=== PATIENT | female | born 1930 | race Caucasian/White ===

== ENCOUNTER → 2017-10-02 | Outpatient (CLI) | payer OTHER ==
[~2017-10-02] MED LIST: ADULT LOW DOSE81 MG PO; ALLEGRA60 MG PO; ASPIRIN325 PO; CIPROFLOXACIN500 M3 PO; DIOVAN HCT 80-1 EACH PO; FISH OIL 1,0001 EAC5 PO; GLUCOPHAGE XR500 MG PO; IRON325 PO; LOPRESSOR 50 MG50 M1 PO; OMEPRAZOLE20 M2 PO; OS-CAL 500+D C1 EACH PO; PLAVIX 75 MG TA75 MG PO; SIMCOR 500-201 EACH PO; THERAGRAN-M AD1 EACH PO; VITAMIN D1000 UNI1 PO; VITCB500GO; ZOFRAN ODT4 MG PO
== END ==
LOC: RAD 10:32
DX: M47.896 Other spondylosis, lumbar region (principal); M16.0 Bilateral primary osteoarthritis of hip; G89.29 Other chronic pain

== ENCOUNTER → 2018-10-05 | Outpatient (CLI) | payer OTHER | LOC: RAD 12:20 | DX: M79.671 Pain in right foot (principal) ==

== ENCOUNTER → 2018-11-20 | Outpatient (CLI) | payer OTHER ==
[~2018-11-20] VITALS: Ht 157.5 cm; Wt 72.6 kg
[~2018-11-20] MED LIST changes: +CRESTOR40 MG PO; +FOLGARD TABLET1 EAC1 PO; +GLUCOSAMINE HC500 MG PO; +LISINOPRIL-HCT1 EAC2 PO
[2018-11-20 07:07] VITALS: BP 131/58
--- NOTE | 2018-11-23 16:59 | CATHLAB ---
[facility] [place] [address] INVASIVE PROCEDURE REPORT Name: ZENONJARRETTSARATHLiza De Jesus Room #: REG Dorian#: [id number] Admission: 11/20/18 Attend Phys: Reece Santoro, Discharge: Date of : 34 Date of Service: 11/23/18 1659 Report #: [id number] THIS REPORT FOR: //name// APPROVED REPORT Study performed: 11/20/2018 08:11:39 Patient Details The patient is a 88 year-old female Event Personnel Reece Santoro Casserole Preparer, Siva Butler RN RN, Dario Ellison RTR Rey, Sophia Mejia Monitor Procedures Performed Left Heart Cath Coronaries, Bypass Grafts [id number] LHCCORCABG , Aortogram, Bilateral Renals Indication Chest pain Procedure Narrative The Right Groin^ was infiltrated with 1% Lidocaine subcutaneous anesthesia. A PINNACLE 6FR Sheath #[id number] sheath was inserted into the RFA^. Coronary angiography was performed using coronary diagnostic catheters. The right coronary system was accessed and visualized with a JR4 catheter. The left coronary system was accessed and visualized with a JL4 catheter. The left ventricle was accessed and visualized with a PIGTAIL catheter. An aortogram of the abdominal aorta was performed. Closure device was deployed with a Fr MYNXGRIP 6/7F #[id number]. The patient tolerated the procedure well and there were no complications associated with the procedure. There was no hematoma. Intraoperative Conscious Sedation Sedation start time: 840 Case end Time: 858 Fentanyl 50 mcg Versed 1 mg Fluoro Time: 3.57 minutes Dose: DAP 5723.00 cGycm2 682 mGy Contrast Type and Amount: Omnipaque 125 ml Hemodynamics The aortic pressure is 130/58 mmHg with a mean of 78 mmHg. The left [facility] [address] [place] [address] INVASIVE PROCEDURE REPORT Name: ABAD MCCORMACK [id number] Admission: 11/20/18 Attend Phys: Reece Santoro, Discharge: Date of : 34 Date of Service: 11/23/18 1659 Report #: [id number] ventricular end diastolic pressure is 26 mmHg. Conclusion #1 normal left ventricular size and systolic function EF 60% #2 abdominal aortogram revealing mild aortic plaquing moderate stenosis of ostial renal arteries no aneurysm. #3 left main mildly calcified mildly disease giving rise to LAD and circumflex #4 LAD is mildly disease it extends around the apex. Moderate calcification is noted. No high-grade occlusive disease #5 the BRANDT is an atraumatic vessel essentially nonfunctioning due to the brisk nature of the [place] LAD flow. 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 Recommendations and plan continue aggressive risk factor modification. We'll follow-up 6 months with a renal Doppler. Follow post angiography protocol. <ELECTRONICALLY SIGNED> By: Reece Santoro MD, FACC 11/23/181658 58 58 Reece Santoro MD, FACC /INF
== END | disposition home or self-care (01) ==
LOC: CATH 06:27
DX: I25.10 Atherosclerotic heart disease of native coronary artery without angina pectoris (principal); I70.1 Atherosclerosis of renal artery; I70.0 Atherosclerosis of aorta; I10 Essential (primary) hypertension; E78.5 Hyperlipidemia, unspecified; E11.9 Type 2 diabetes mellitus without complications; M19.90 Unspecified osteoarthritis, unspecified site; K21.9 Gastro-esophageal reflux disease without esophagitis; Z95.1 Presence of aortocoronary bypass graft; Z88.2 Allergy status to sulfonamides; Z79.82 Long term (current) use of aspirin; Z79.899 Other long term (current) drug therapy; Z98.890 Other specified postprocedural states

== ENCOUNTER 2019-06-09 21:39 | Observation (INO) | payer OTHER ==
[~2019-06-09] VITALS: Ht 160 cm; Wt 71.7 kg
[2019-06-09 21:41] VITALS: BP 170/73
[2019-06-09] MEDS ORDERED: LOSARTAN POTASS50 MG PO (21:53)
[2019-06-09] MEDS ORDERED: CHILDREN'S ZYRT10 M1 PO (21:54)
[2019-06-09] MEDS ORDERED: TOPROL XL50 MG PO (21:54)
[2019-06-09] MEDS ORDERED: PROBIOTIC1 EAC7 PO (21:55)
[2019-06-09] MEDS ORDERED: ADVAIR 250-501 EACH INH (21:56)
[2019-06-09] MEDS ORDERED: VENTOLIN HFA INH8 GM INH (21:56)
[2019-06-09] MEDS ORDERED: NITROSTAT0.4 M1 SUBLING (21:58)
[2019-06-09 22:05] LABS: HEMATOCRIT 34.2 % (37.0-47.0); HEMOGLOBIN 11.2 gm/dL (12.0-15.0); MCH 30.7 pg (26.0-34.0); MCHC 32.9 g/dL (28.0-37.0); MCV 93.2 fL (80.0-100.0); PLATELET COUNT 279 thou/uL (150-400); RBC 3.67 mil/uL (4.20-5.00); RDW 14.9 % (10.5-14.5); WBC 6.9 thou/uL (4.0-11.0)
[2019-06-09 22:15] LABS: ANION GAP 9 mmol/L (7-16); BUN 15 mg/dL (7-18); CALCIUM 8.9 mg/dL (8.5-10.1); CHLORIDE 101 mmol/L (98-107); CO2 27 mmol/L (21-32); CREATININE 0.6 mg/dL (0.6-1.0); GLUCOSE 114 mg/dL (74-106); POTASSIUM 3.6 mmol/L (3.5-5.1); SODIUM 137 mmol/L (136-145)
[2019-06-09 22:25] LABS: ALBUMIN 3.6 g/dL (3.4-5.0); SGOT 19 U/L (15-37); SGPT 20 U/L (30-65); TOTAL BILIRUBIN 0.9 mg/dL (<0.1-1.0); TOTAL PROTEIN 7.1 g/dL (6.4-8.2); TROPONIN-I <0.06 ng/mL (<0.06)
[2019-06-09 22:40] LABS: ABSOLUTE NEUTROPHILS 4.1 thou/uL (1.4-8.2); ANISOCYTOSIS 1+; POLYCHROMASIA OCCASIONAL
[2019-06-10 01:46] VITALS: BP 127/55
[2019-06-10 01:47] VITALS: BP 127/55
[2019-06-10 02:53] VITALS: BP 128/48
[2019-06-10 04:45] VITALS: BP 136/51
--- NOTE | 2019-06-10 06:26 | NUR ---
PT ARRIVED ON UNIT AROUND 0215. PT HAD ZERO C/O PAIN, N/V/D. PT ADMISSION COMPLETED AND PT RESTED IN BED WITH MINIMAL INTERRUPTIONS. WILL CONTINUE TO MONITOR PT PER PLAN OF CARE.
[2019-06-10 06:59] LABS: CHOLESTEROL 150 mg/dL (<200); HDL CHOLESTEROL 56 mg/dL (>40); LDL CHOLESTEROL 71 mg/dL (<100); TC:HDL 2.7 Ratio (Not establshd); TRIGLYCERIDE 118 mg/dL (<150); TROPONIN-I <0.06 ng/mL (<0.06); VLDL 24 mg/dL (<40)
[2019-06-10 07:50] VITALS: BP 122/74
--- NOTE | 2019-06-10 08:18 | EKG ---
[facility] [place] [address] ELECTROCARDIOGRAM REPORT Name: ABAD MCCORMACK Room #: 216-[facility] M.R.#: [id number] Admission: 06/09/19 Attend Phys: Bill Galloway MD Discharge: Date of : 34 Report #: [id number] THIS REPORT FOR: cc: Abebe Allen Steven F. DO Couchonnal, Luis F. MD ~ THIS REPORT FOR: //name// [facility] ED Test Date: 2019-06-09 Test Time: 21:42:42 Pat Name: ABAD MCCORMACK Department: Room: 216 Gender: F Magistrate Judge: MARILIN : 1930 Requested By: Arian Tijerina Order Number: [id number] MD: Mann Hewitt Measurements Intervals [place] Rate: 64 P: 49 MO: 204 QRS: 62 QRSD: 111 T: -30 QT: 371 QTc: 383 Interpretive Statements Sinus rhythm Borderline repolarization abnormality Compared to ECG 06/08/2010 19:49:12 No significant changes Electronically Signed On 06-10-2019 8:17:32 EVENT COORDINATOR [employer]ING [employer] SALES by Mann Hewitt [email or web address] <ELECTRONICALLY SIGNED> By: Mann Hewitt MD 06/10/19 0817 41 41 Mann Hewitt MD /EPI
--- NOTE | 2019-06-10 09:03 | 2DMMODE ---
[facility] [place] [address] 2 D/M-MODE ECHOCARDIOGRAM Name: ABAD MCCORMACK Room #: 216-P [employer] M.R.#: [id number] Admission: 06/09/19 Attend Phys: Bill Galloway MD Discharge: Date of : 32 Report #: [id number] THIS REPORT FOR: cc: Abebe Allen,Reece Moreno MD [facility] ~ APPROVED REPORT Study performed: 06/10/2019 08:27:09 EXAM: Comprehensive 2D, Doppler, and color-flow Echocardiogram Patient Location: Echo lab Room #: 216 Status: routine BSA: 1.76 HR: 61 bpm BP: 136/51 mmHg Rhythm: NSR Other Information Study Quality: Good Indications CAD Elevated BNP 2D Dimensions RVDd: 38.84 mm IVSd: 10.85 (7-11mm) LVOT Diam: 20.18 (18-24mm) LVDd: 39.82 mm PWd: 9.68 (7-11mm) Ascending Ao: 30.26 (22-36mm) LVDs: 27.33 (25-40mm) Aortic Root: 31.39 mm IVC: 11.00 mm Volumes Left Atrial Volume (Systole) Single Plane 4CH: 52.39 mL Single Plane 2CH: 58.90 mL LA ESV Index: 35.00 mL/m2 Aortic Valve AoV Peak New.: 1.35 m/s AO Peak Gr.: 7.30 mmHg LVOT Max P.30 mmHg LVOT Max V: 1.26 m/s GENEVA Vmax: 2.97 cm2 [facility] [address] [address] 2 D/M-MODE ECHOCARDIOGRAM Name: OTTONIELQUANABAD Liza Room #: 216-[address] [facility]#: [id number] Admission: 06/09/19 Attend Phys: Bill Galloway MD Discharge: Date of : 32 Report #: [id number] Mitral Valve E/A Ratio: 1.0 MV Decel. Time: 265.12 ms MV E Max New.: 1.05 m/s MV A New.: 1.00 m/s MV PHT: 76.88 ms IVRT: 115.34 ms Pulmonary Valve PV Peak New.: 0.89 m/s PV Peak Gr.: 3.19 mmHg Pulmonary Vein P Vein S: 0.69 m/s P Vein A: 0.19 m/s P Vein D: 0.36 m/s P Vein A Dur.: 78.4 msec P Vein S/D Ratio: 1.92 Tricuspid Valve TR Peak New.: 2.50 m/s TR Peak Gr.: 25.10 mmHg PA Pressure: 30.00 mmHg Left Ventricle The left ventricle is normal size. There is normal LV segmental wall motion. There is normal left ventricular wall thickness. The left ventricular systolic function is normal. The left ventricular ejection fraction is within the normal range. LVEF is 55-60%. Grade II - pseudonormal filling dynamics. Right Ventricle The right ventricle is normal size. The right ventricular systolic function is normal. Atria Left atrium is mildly dilated. The right atrium size is normal. Aortic Valve The aortic valve is normal in structure. No aortic regurgitation is present. There is no aortic valvular stenosis. Mitral Valve The mitral valve is normal in structure. Mild mitral regurgitation. No evidence of mitral valve stenosis. Tricuspid Valve [facility] [address] [place] [address] 2 D/M-MODE ECHOCARDIOGRAM Name: ABAD MCCORMACK Room #: 216-[address] [facility] [place] ..#: [id number] Admission: 06/09/19 Attend Phys: Bill Galloway MD Discharge: Date of : 32 Report #: [id number] The tricuspid valve is normal in structure. There is trace tricuspid regurgitation. Estimated PAP 30 mmHg. There is no pulmonary hypertension. Pulmonic Valve The pulmonary valve is normal in structure. There is no pulmonic valvular regurgitation. Great Vessels The aortic root is normal in size. IVC is normal in size and collapses >50% with inspiration. Pericardium There is no pericardial effusion. <Conclusion> The left ventricle is normal size. LVEF is 55-60%. Grade II - pseudonormal filling dynamics. The right ventricle is normal size. Left atrium is mildly dilated. The right atrium size is normal. The aortic valve is normal in structure. Mild mitral regurgitation. There is trace tricuspid regurgitation. Estimated PAP 30 mmHg. There is no pulmonary hypertension. The aortic root is normal in size. There is no pericardial effusion. <ELECTRONICALLY SIGNED> By: Reece Santoro MD, FACC 06/10/19900 0 0 Reece Santoro MD, FACC /INF
[2019-06-10 10:19] VITALS: BP 122/78
--- NOTE | 2019-06-10 10:35 | NUR ---
ASSUMED CARE 0700, ALERT X4, DENIES CHEST PAIN, DENIES SOB, VS NORAL LIMITS, UP AB JENNIFER, CARDIOLOGY SIGNED OFF PATIENT TO DC HOME WITH SELF CARE. NSR ON TELE
== END 2019-06-10 11:02 | disposition home or self-care (01) ==
LOC: ER 21:39 → 2N 23:45 → EROBS 23:45 → 2N 23:45 → ENTRNSPT 06-10 10:57 → EDTRNSPTSTS 06-10 10:59 → 2N 06-10 11:02
PROVIDERS: Emergency Medicine; Nurse Practitioner; ADMIT Hospitalist
DX: R07.89 Other chest pain (principal); I10 Essential (primary) hypertension; E78.5 Hyperlipidemia, unspecified; I25.10 Atherosclerotic heart disease of native coronary artery without angina pectoris; M19.90 Unspecified osteoarthritis, unspecified site; E11.9 Type 2 diabetes mellitus without complications; Z90.49 Acquired absence of other specified parts of digestive tract; Z98.890 Other specified postprocedural states; Z85.038 Personal history of other malignant neoplasm of large intestine; Z95.1 Presence of aortocoronary bypass graft

== ENCOUNTER → 2019-06-28 | Outpatient (CLI) | payer OTHER ==
[~2019-06-28] MED LIST changes: +ADVAIR 250-501 EACH INH; +CHILDREN'S ZYRT10 M1 PO; +LOSARTAN POTASS50 MG PO; +NITROSTAT0.4 M1 SUBLING; +PROBIOTIC1 EAC7 PO; +TOPROL XL50 MG PO; +VENTOLIN HFA INH8 GM INH
== END ==
LOC: BC 12:01
DX: Z12.31 Encounter for screening mammogram for malignant neoplasm of breast (principal)

== ENCOUNTER → 2019-11-04 | Outpatient (CLI) | payer OTHER ==
[~2019-11-04] MED LIST changes: +ADVAIR 100-501 EACH INH; +ASPIR 8181 MG PO; +CEFUROXIME250 MG PO; +K-DUR 20 MEQ T20 MEQ PO; +LOPRESSOR50 PO; +MAGNESIUM400 MG PO; +METFORMIN HCL500 MG PO; +PRILOSEC OTC20 MG PO; +REGLAN 10 MG TA10 MG PO; +TYLENOL EXTRA500 MG PO; +ZESTORETIC 20-1 EAC3 PO
== END ==
LOC: NUC 07-26 10:29
PROVIDERS: ATTEND Neuromusculoskeletal Medicine & OMM
DX: Z13.820 Encounter for screening for osteoporosis (principal); M85.88 Other specified disorders of bone density and structure, other site

== ENCOUNTER 2020-03-21 13:02 | Inpatient (IN) | payer OTHER ==
[~2020-03-21] VITALS: Ht 160 cm; Wt 69.9 kg
[~2020-03-21 13:02] MED LIST changes: -ADVAIR 100-501 EACH INH; -CEFUROXIME250 MG PO; -K-DUR 20 MEQ T20 MEQ PO; -MAGNESIUM400 MG PO
[2020-03-21 13:04] VITALS: BP 141/70
[2020-03-21 14:16] LABS: URINE BILIRUBIN NEGATIVE (Negative); URINE BLOOD TRACE (Negative); URINE CLARITY SL CLOUDY; URINE COLOR YELLOW; URINE GLUCOSE-RANDOM* 1+ (Negative); URINE KETONES NEGATIVE (Negative); URINE NITRITE-REFLEX NEGATIVE (Negative); URINE PROTEIN (DIPSTICK) 1+ (Negative); URINE SPECIFIC GRAVITY 1.015 (1.005-1.035)
[2020-03-21 14:18] LABS: HEMATOCRIT 36.6 % (37.0-47.0); HEMOGLOBIN 12.3 gm/dL (12.0-15.0); MCH 30.8 pg (26.0-34.0); MCHC 33.5 g/dL (28.0-37.0); MCV 91.9 fL (80.0-100.0); PLATELET COUNT 153 thou/uL (150-400); RBC 3.98 mil/uL (4.20-5.00); RDW 13.8 % (10.5-14.5); WBC 3.9 thou/uL (4.0-11.0)
[2020-03-21 14:27] LABS: CALCIUM 8.8 mg/dL (8.5-10.1); CREATININE 0.9 mg/dL (0.6-1.0)
[2020-03-21 14:29] LABS: URINE LEUKOCYTES-REFLEX 2+ (Negative)
[2020-03-21 14:33] LABS: ALBUMIN 3.2 g/dL (3.4-5.0); TOTAL BILIRUBIN 0.6 mg/dL (0.2-1.0); TOTAL PROTEIN 7.2 g/dL (6.4-8.2)
[2020-03-21] MEDS ORDERED: LOSARTAN POTASS50 MG PO (14:37)
[2020-03-21] MEDS ORDERED: PROBIOTIC1 EAC7 PO (14:38)
[2020-03-21 14:39] LABS: CASTS None Seen /LPF (None Seen); CRYSTALS None Seen /LPF (None Seen); SQUAMOUS 0-3 Few /LPF (0-3)
[2020-03-21] MEDS ORDERED: ADVAIR 100-501 EACH INH (14:39)
[2020-03-21 14:42] LABS: BACTERIA-REFLEX >30 Many /HPF (None Seen); URINE RBC None Seen /HPF (0-2)
[2020-03-21 16:13] VITALS: BP 130/50
--- NOTE | 2020-03-21 17:23 | NUR ---
PIER WORKER CALLED FOR INPATIENT REPORT AND WAS TOLD RN IS CURRENTLY IN THE MIDDLE OF PT CARE AND WILL RETURN DONNA
[2020-03-21 18:07] VITALS: BP 133/60
[2020-03-21 18:22] VITALS: BP 133/96
[2020-03-21 19:09] LABS: LARGE PLATELETS FEW; PLATELET ESTIMATE NORMAL
[2020-03-21 19:45] VITALS: BP 132/48
[2020-03-21 23:49] VITALS: BP 117/54
[2020-03-22 04:33] VITALS: BP 127/52
[2020-03-22 04:42] VITALS: BP 109/54
--- NOTE | 2020-03-22 05:46 | NUR ---
Max temp of 101.5 last night. POLICY CHECKER notified , tylenol given with good relief and has been afebrile since. Positive COVID test result also reported to POLICY CHECKER and dye house supervisor. Pt. stated she slept well during the night. Tolerating room air well with no respiratory distress. Up with SBA to commode.
[2020-03-22 06:24] LABS: HEMOGLOBIN 11.3 gm/dL (12.0-15.0); MCH 30.8 pg (26.0-34.0); MCHC 33.3 g/dL (28.0-37.0); MCV 92.5 fL (80.0-100.0); PLATELET COUNT 124 thou/uL (150-400); RBC 3.68 mil/uL (4.20-5.00); RDW 13.9 % (10.5-14.5); WBC 2.7 thou/uL (4.0-11.0)
[2020-03-22 06:46] LABS: CALCIUM 8.3 mg/dL (8.5-10.1); MAGNESIUM 1.6 mg/dL (1.8-2.4); POTASSIUM 3.9 mmol/L (3.5-5.1)
--- NOTE | 2020-03-22 07:09 | EKG ---
[facility] [place] [address] ELECTROCARDIOGRAM REPORT Name: ABAD MCCORMACK Room #: 360-P [facility] M.R.#: [id number] Admission: 03/21/20 Attend Phys: Hector Parish MD Discharge: 03/23/20 Date of : 34 Report #: [id number] THIS REPORT FOR: cc: Abebe Allen Steven F. DO Santiago, Patrick MD [facility] THIS REPORT FOR: //name// [facility] ED Test Date: 2020-03-21 Test Time: 13:25:12 Pat Name: ABAD MCCORMACK Department: Room: 360 P Gender: F Schedule Supervisor: JENNIFER : 1930 Requested By: Candace Christensen Order Number: [id number] MD: Krystian Munoz Measurements Intervals [place] Rate: 82 P: -22 [place]: 198 QRS: 64 QRSD: 103 T: 43 QT: 377 QTc: 441 Interpretive Statements Sinus rhythm Compared to ECG 11/06/2018 08:57:12 ST (T wave) deviation no longer present Electronically Signed On 03-22-2020 7:08:58 SUBSTATION INSPECTOR by Krystian Munoz [email or web address] <ELECTRONICALLY SIGNED> By: Krystian Munoz MD, FACC 03/22/20 0708 1325 1325 Krystian Munoz MD, FACC /EPI
[2020-03-22 07:55] VITALS: BP 134/73
--- NOTE | 2020-03-22 09:44 | NUR ---
assessment: CM REVIEWED CHART AND SPOKE WITH PT VIA PHONE. PT IS IN ENHANCED ISOLATION FOR COVID 19 AND PCR TEST IS POSITIVE. PT LIVES AT HOME WITH HER WHO WAS AT [facility] LAST WEEK AND TESTED POSITIVE FOR COVID 19. SHE REPORTS HAVING WEAKNESS AND FATIGUE. PT REPORTS THAT THEY HAS NO STEPS SHE HAS TO USE AT THE HOME. PT REPORTS SHE IS FULLY INDEPENDENT WITH ADLS AND AMBULATION. PT REPORTS HAVING A GRAB BAR IN THE SHOWER. PT STATES SHE WENT TO REHAB AT [facility] ABOUT 20 YEARS AGO BUT HAS NOT BEEN TO A SNF. PT REPORTS HER WAS JUST DISCHARGED TODAY FROM [facility]. PT IS HOPEFUL SHE WILL PRGORESS AND HAVE NO NEEDS AT DISCHARGE. PT IS NOT CURRENTLY ON ANY OXYGEN AND SHE IS RECEIVING IV ANTIBIOTICS. CM WILL CONTINUE TO FOLLOW TO ASSIST NEEDED.
[2020-03-22 10:55] LABS: ABSOLUTE NEUTROPHILS 1.4 thou/uL (1.4-8.2); ATYPICAL LYMPHS 2 %; MYELOCYTES 1 %
[2020-03-22 10:56] LABS: ANISOCYTOSIS SLIGHT; LARGE PLATELETS OCCASIONAL
[2020-03-22 15:38] VITALS: BP 126/53
--- NOTE | 2020-03-22 18:20 | NUR ---
ASSUMED PATIENT CARE AT 0700, UP AD JENNIFER. PROGRESSING TOWARDS POC GOALS.
[2020-03-22 19:54] VITALS: BP 105/58
[2020-03-23 03:10] VITALS: BP 121/53
[2020-03-23 05:39] LABS: HEMATOCRIT 29.7 % (37.0-47.0); HEMOGLOBIN 10.2 gm/dL (12.0-15.0); MCH 31.2 pg (26.0-34.0); MCHC 34.2 g/dL (28.0-37.0); MCV 91.2 fL (80.0-100.0); RBC 3.25 mil/uL (4.20-5.00); RDW 13.6 % (10.5-14.5); WBC 2.8 thou/uL (4.0-11.0)
--- NOTE | 2020-03-23 06:15 | NUR ---
Pt. has been awake most of the night and didn't start sleeping till late this am. Requested tylenol for generalized ache with good result. Cont. on enhanced precaution , afebrile. Voiding per commode. Tolerating room air well with O2 sat in the low to mid 90's.
[2020-03-23 06:16] LABS: CALCIUM 8.2 mg/dL (8.5-10.1); CREATININE 0.7 mg/dL (0.6-1.0); MAGNESIUM 1.5 mg/dL (1.8-2.4); POTASSIUM 3.7 mmol/L (3.5-5.1)
[2020-03-23 06:47] VITALS: BP 121/57
[2020-03-23] MEDS ORDERED: CEFUROXIME250 MG PO (12:13)
[2020-03-23] MEDS ORDERED: K-DUR 20 MEQ T20 MEQ PO (12:13)
[2020-03-23] MEDS ORDERED: MAGNESIUM400 MG PO (12:13)
[2020-03-23 12:57] VITALS: BP 121/57
--- NOTE | 2020-03-23 15:08 | NUR ---
DISCHARGE NOTE: SW reviewed chart and spoke with nursing and attending physician. Pt remains in Enhanced Isolation due to COVID-19. Pt is medically stable for discharge home today. SW spoke with pt via phone to discuss discharge plan. Pt is aware and agreeable with discharge plan. Pt declines any discharge needs. Pt's family to provide transportation home. No SW needs identified at this time, but is available to assist should needs arise.
[2020-03-23 15:36] VITALS: BP 135/54
--- NOTE | 2020-03-23 18:49 | NUR ---
RN ASSUMED PT'S CARE AT 0700AM, PT WAS A&OX3, PT CAN GET UO TO BSC BU HER SELF , PT DID NOT HAVE SOB AND FEVER, PT'S VS ARE STBALE, PT FINISHED HER 3PM IV IV ABX , PT DC TO HOME AT 1630PM, RN HAD GIVING DC TEACHING , PT UNDERSTANDED WELL .
== END 2020-03-23 16:29 | disposition home or self-care (01) | DRG 177 ==
LOC: ER 13:02 → 3W 15:30 → EROBS 15:30 → 3W 18:20
PROVIDERS: Internal Medicine; Nurse Practitioner; Physician Assistant; ADMIT Internal Medicine; ATTEND Internal Medicine
DX: U07.1 COVID-19 (principal); R65.11 Systemic inflammatory response syndrome (SIRS) of non-infectious origin with acute organ dysfunction; E87.1 Hypo-osmolality and hyponatremia; N39.0 Urinary tract infection, site not specified; E46 Unspecified protein-calorie malnutrition; I10 Essential (primary) hypertension; E78.5 Hyperlipidemia, unspecified; I25.10 Atherosclerotic heart disease of native coronary artery without angina pectoris; E11.9 Type 2 diabetes mellitus without complications; B96.20 Unspecified Escherichia coli [E. coli] as the cause of diseases classified elsewhere; Z79.82 Long term (current) use of aspirin; Z95.1 Presence of aortocoronary bypass graft; Z88.2 Allergy status to sulfonamides; Z88.8 Allergy status to other drugs, medicaments and biological substances; Z85.038 Personal history of other malignant neoplasm of large intestine; Z98.49 Cataract extraction status, unspecified eye; Z90.710 Acquired absence of both cervix and uterus; Z79.899 Other long term (current) drug therapy; Z68.27 Body mass index [BMI] 27.0-27.9, adult
CPT/HCPCS: 10879

== ENCOUNTER → 2020-05-15 | Outpatient (CLI) | payer OTHER ==
[~2020-05-15] MED LIST changes: +ADVAIR 100-501 EACH INH; +CEFUROXIME250 MG PO; +K-DUR 20 MEQ T20 MEQ PO; +MAGNESIUM400 MG PO
== END ==
LOC: SJCVCIMAG
PROVIDERS: ATTEND Internal Medicine Cardiovascular Disease
DX: I65.23 Occlusion and stenosis of bilateral carotid arteries (principal); R94.31 Abnormal electrocardiogram [ECG] [EKG]; I25.810 Atherosclerosis of coronary artery bypass graft(s) without angina pectoris; I10 Essential (primary) hypertension; E78.00 Pure hypercholesterolemia, unspecified; E11.9 Type 2 diabetes mellitus without complications; R53.83 Other fatigue; M19.90 Unspecified osteoarthritis, unspecified site; Z95.1 Presence of aortocoronary bypass graft; Z88.8 Allergy status to other drugs, medicaments and biological substances; Z79.82 Long term (current) use of aspirin; Z79.899 Other long term (current) drug therapy; Z86.16 Personal history of COVID-19; Z82.49 Family history of ischemic heart disease and other diseases of the circulatory system

== ENCOUNTER → 2020-06-21 | Outpatient (CLI) | payer OTHER | LOC: SJCVCIMAG 08:00 | PROVIDERS: ATTEND Internal Medicine Cardiovascular Disease | DX: I08.1 Rheumatic disorders of both mitral and tricuspid valves (principal); I25.10 Atherosclerotic heart disease of native coronary artery without angina pectoris; I10 Essential (primary) hypertension; Z79.899 Other long term (current) drug therapy ==

== ENCOUNTER 2020-08-06 21:37 | Emergency (ER) | payer OTHER ==
[~2020-08-06] VITALS: Ht 160 cm; Wt 68.0 kg
[2020-08-06 22:42] LABS: ABSOLUTE NEUTROPHILS 4.1 thou/uL (1.4-8.2); EOSINOPHILS 2.2 % (0.0-3.0); HEMOGLOBIN 11.6 gm/dL (12.0-15.0); MCH 31.1 pg (26.0-34.0); MCHC 33.1 g/dL (28.0-37.0); MCV 93.8 fL (80.0-100.0); MONOCYTES 12.1 % (1.0-8.0); PLATELET COUNT 292 thou/uL (150-400); POLYS 56.7 % (36.0-66.0); RBC 3.73 mil/uL (4.20-5.00); RDW 13.9 % (10.5-14.5); WBC 7.2 thou/uL (4.0-11.0)
[2020-08-06 23:01] LABS: CALCIUM 8.8 mg/dL (8.5-10.1); CREATININE 0.7 mg/dL (0.6-1.0); POTASSIUM 3.8 mmol/L (3.5-5.1)
[2020-08-06 23:31] LABS: URINE BILIRUBIN NEGATIVE (Negative); URINE BLOOD NEGATIVE (Negative); URINE CLARITY CLEAR; URINE COLOR YELLOW; URINE GLUCOSE-RANDOM* NEGATIVE (Negative); URINE KETONES NEGATIVE (Negative); URINE NITRITE-REFLEX NEGATIVE (Negative); URINE PROTEIN (DIPSTICK) NEGATIVE (Negative); URINE SPECIFIC GRAVITY 1.015 (1.005-1.035)
[2020-08-06 23:33] LABS: URINE LEUKOCYTES-REFLEX 2+ (Negative)
[2020-08-06 23:46] LABS: BACTERIA-REFLEX None Seen /HPF (None Seen); CASTS None Seen /LPF (None Seen); CRYSTALS None Seen /LPF (None Seen); MUCUS None Seen strn/LPF (None Seen); SQUAMOUS 0-3 Few /LPF (0-3); URINE RBC None Seen /HPF (0-2); URINE WBC-REFLEX 0-5 Rare /HPF (0-5)
[2020-08-07 01:37] VITALS: BP 151/53
--- NOTE | 2020-08-07 09:42 | EKG ---
[place] [address] [facility] [place] [address] ELECTROCARDIOGRAM REPORT Name: ABAD MCCORMACK Room #: [facility]#: [id number] Admission: 08/06/20 Attend Phys: Discharge: 08/07/20 Date of : 34 Report #: [id number] [facility] ED Test Date: 2020-08-06 Test Time: 21:59:13 Pat Name: ABAD MCCORMACK Department: Room: Gender: F Drug Counselor: david grace : 1930 Requested By: Gabrielle Carson Order Number: [id number] MD: Marcelino Gonzalez Measurements Intervals [place] Rate: 62 P: 7 [place]: 192 QRS: 56 QRSD: 113 T: 76 QT: 443 QTc: 450 Interpretive Statements Sinus rhythm Early R wave progression Compared to ECG 03/21/2020 13:25:12 No significant changes found Electronically Signed On 08-07-2020 9:42:27 CDT by Marcelino Gonzalez [email or web address] <ELECTRONICALLY SIGNED> By: Marcelino Gonzalez MD, [facility] 08/07/20 0942 2159 2159 Marcelino Gonzalez MD, FACC /EPI
== END 2020-08-07 01:47 | disposition home or self-care (01) ==
LOC: ER 21:37
PROVIDERS: Emergency Medicine
DX: K59.00 Constipation, unspecified (principal); I10 Essential (primary) hypertension; R10.32 Left lower quadrant pain; R10.13 Epigastric pain; E11.9 Type 2 diabetes mellitus without complications; Z88.1 Allergy status to other antibiotic agents; Z88.2 Allergy status to sulfonamides; Z79.899 Other long term (current) drug therapy; Z79.82 Long term (current) use of aspirin; Z95.1 Presence of aortocoronary bypass graft